=== PATIENT | male | born 1970 | race Caucasian/White ===

== ENCOUNTER 2025-01-29 22:46 | Emergency (ER) | payer BC ==
[2025-01-29] MEDS ORDERED: Lidocaine 1% w/Epinephrine 1:100K 20 ML VIAL ONE (23:16)
[2025-01-29] MEDS ORDERED: Boostrix 0.5 ML (Tdap) VIAL (>/=7 yrs of age) ONE (23:31)
[2025-01-29] MEDS ORDERED: Bacitracin 1 PK ONE (23:44)
== END 2025-01-29 23:53 | disposition home or self-care (01) ==
LOC: BURERS 22:46
DX: S01.21XA Laceration without foreign body of nose, initial encounter (principal); W55.22XA Struck by cow, initial encounter; Y93.89 Activity, other specified; Z23 Encounter for immunization
CPT/HCPCS: 12011; 90471; 90715